=== PATIENT | female | born 1950 | race Caucasian/White ===

== ENCOUNTER 2017-09-30 18:39 | Emergency (ER) | payer MEDICARE ==
[2017-09-30] MEDS ORDERED: Lidocaine 1% w/Epinephrine 1:200K 30 ML VIAL ONE (19:14)
[2017-09-30] MEDS ORDERED: CEFAZOLIN 1 GM VIAL IM SCH (20:30)
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
[2017-09-30] MEDS ORDERED: Bacitracin Zinc 1 Packet ONE (20:39)
== END 2017-09-30 21:23 | disposition home or self-care (01) ==
LOC: ERS 18:39
DX: S62.521B Displaced fracture of distal phalanx of right thumb, initial encounter for open fracture (principal); S61.111A Laceration without foreign body of right thumb with damage to nail, initial encounter; I49.9 Cardiac arrhythmia, unspecified; I47.1 Supraventricular tachycardia; K21.9 Gastro-esophageal reflux disease without esophagitis; W23.0XXA Caught, crushed, jammed, or pinched between moving objects, initial encounter
CPT/HCPCS: 12001; 96372; J0690

== ENCOUNTER 2018-09-16 14:57 | Outpatient (CLI) | payer MEDICARE ==
--- NOTE | 2018-09-16 16:53 | RAD ---
3 VIEWS LUMBAR SPINE WITH NEUTRAL AND FLEXION AND EXTENSION VIEWS: Date: 09/16/18 HISTORY: Low back pain. COMPARISON: 04/26/17. FINDINGS: Postsurgical changes lumbosacral junction are noted. There is what appears to be a neural stimulation device overlying the mid sacrum. As noted on prior study, there are four non-rib bearing lumbar-type vertebral bodies. There is stable slight Grade I anterolisthesis of L4 on L5. There is slight correc tion and degree of anterolisthesis on extension compared to flexion, which was also noted on the prio r exam. Vertebral body heights are within normal limits. There is slight retrolisthesis of T12 on L1. Scattered osteophytes are present within the lower thoracic and involving the lumbar vertebral reji s. Facet degenerative change is seen in the lower lumbar spine. Surgical clips again overlie the uppe r abdomen. No other interval change. IMPRESSION: 1. Grade I anterolisthesis of L4 on L5 with minimal translational motion between the flexion and ext ension views. 2. Slight retrolisthesis of T12 on L1. 3. Mild degenerative changes in the lower thoracic, as well as involving the lumbar spine. POS: R[place]
== END 2018-09-16 14:58 | disposition home or self-care (01) ==
LOC: RAD 14:57
PROVIDERS: ATTEND Nurse Practitioner Family
DX: M43.16 Spondylolisthesis, lumbar region (principal); M43.17 Spondylolisthesis, lumbosacral region; M47.815 Spondylosis without myelopathy or radiculopathy, thoracolumbar region; M43.15 Spondylolisthesis, thoracolumbar region
CPT/HCPCS: 72100

== ENCOUNTER 2018-12-20 06:54 | Day surgery (SDC) | payer MEDICARE ==
[2018-12-19 14:20] VITALS: BMI 35.6
--- NOTE | 2018-12-20 11:34 | CT ---
MYELOGRAM AND POST MYELOGRAPHIC CT OF THE CERVICAL AND LUMBAR SPINE: RADIATION DOSIMETRY: Fluoroscopy 4.3 minutes. DAP 4.7 mGy per m2. FINDINGS: Initially, the L1-L2 region was prepped and draped in the right paraspinal region, by Dr. Salazar. A ttempts were made to gain access into this area. This was unsuccessful. I then reattempted to gain access. This time, a right L2-L3 paraspinal approach was used. Access was gained using a 22 gauge s ernie needle. A total of 10 mL of Isovue 300 was injected into the subarachnoid space. This was pos itioned in the lumbar spine and in the cervical spine. Post myelographic CT of the cervical and lumb ar spine was performed. CERVICAL SPINE CT: There is ACDF with anterior fusion of the C5-C6 and C6-C7 vertebral levels, using ACDF plates and screws. C1-C2: The patient has some synovial cysts at the left lateral aspect of the odontoid. No evidence of significant central stenosis is seen. C2-C3: Unremarkable. C3-C4: There is minimal facet hypertrophy seen. There is a mild broad-based disk bulge without evid ence of significant central stenosis. C4-C5: No significant degree of central or neural foraminal narrowing seen. C5-C6: ACDF fusion is seen. There is moderate bilateral C5-C6 neural foraminal narrowing due to ost eophyte encroachment. There is mild central canal stenosis due to posterior osteophyte compressing t he anterior thecal sac. C6-C7: There is mild bilateral neural foraminal narrowing. The central canal is patent. C7-T1: Unremarkable. LUMBAR SPINE CT: Vacuum disk change is seen at the T11-T12 and T12-L1 levels. T12-L1: Some vacuum disk change is seen. There is severe left lateral recess stenosis due to a larg e left T12-L1 disk extrusion. This compresses the thecal sac, resulting in severe central and parace ntral stenosis. The extruded material extends inferiorly, into the left T12-L1 epidural space. Ther e is bilateral facet and ligamentum flavum hypertrophy. This adds to the degree of spinal stenosis. L1-L2: Disk desiccation is seen. There is a broad-based disk bulge with bilateral facet and mild li gamentum flavum hypertrophy. No significant evidence of neural foraminal narrowing is seen. L2-L3: Mild broad-based disk bulge is seen. Facet and ligamentum flavum hypertrophy is seen. This results in a moderate degree of central and lateral recess stenosis. The neural foramen demonstrate mild narrowing. L3-L4: There is a mild broad-based disk bulge with bilateral facet and ligamentum flavum hypertrophy , resulting in a moderate degree of central and lateral recess stenosis. The neural foramen are pearson nt. L4-L5: There is a broad-based disk bulge with severe facet and ligamentum flavum hypertrophy, result ing in moderate to severe central and lateral recess stenosis. Mild to moderate bilateral neural for aminal narrowing is also seen. L5-S1: The patient has fusion of the L5-S1 disk with extensive right SI joint fusion, superiorly. T he L5 vertebral body is a transitional type vertebra. There is mild levoscoliosis seen centered at the L3 level. IMPRESSION: Severe facet degenerative changes and large left T12-L1 disk extrusion compressing the thecal sac. IMPRESSION: 1. D POS: OSITO
== END 2018-12-20 10:40 | disposition home or self-care (01) ==
LOC: RAD 06:54
PROVIDERS: ATTEND Neurological Surgery
PROC: B01B1ZZ Fluoroscopy of Spinal Cord using Low Osmolar Contrast (ICD-10-PCS; principal; 2018-12-20)
DX: M50.11 Cervical disc disorder with radiculopathy, high cervical region (principal); M51.16 Intervertebral disc disorders with radiculopathy, lumbar region; M41.86 Other forms of scoliosis, lumbar region; M51.25 Other intervertebral disc displacement, thoracolumbar region; M48.061 Spinal stenosis, lumbar region without neurogenic claudication; M48.02 Spinal stenosis, cervical region; M79.7 Fibromyalgia; K21.9 Gastro-esophageal reflux disease without esophagitis; E78.00 Pure hypercholesterolemia, unspecified; Z79.1 Long term (current) use of non-steroidal anti-inflammatories (NSAID); Z79.899 Other long term (current) drug therapy; Z88.2 Allergy status to sulfonamides; Z88.5 Allergy status to narcotic agent; Z88.8 Allergy status to other drugs, medicaments and biological substances; Z98.1 Arthrodesis status
CPT/HCPCS: 62305; 72126; 72132

== ENCOUNTER 2020-04-21 13:23 | Outpatient (CLI) | payer MEDICARE ==
--- NOTE | 2020-04-21 17:36 | MRI ---
MRI LUMBAR SPINE WITH AND WITHOUT CONTRAST: 04/21/20 INDICATIONS: Lumbar radiculopathy. Back pain. Correlation made to postmyelogram CT lumbar spine 12/20/18. Postop changes are seen at L5-S1. Anterior hardware produces artifact at this level. There is an anterolisthesis at L4-5 slightly more prominent than on the prior study. There is superio r end plate compression at L2 which occurred since the prior CT. There is superior end plate deformit y with secondary superior end plate compression with loss of central height and mild loss of anterior height. No significant edema on the STIR sequence which would indicate a stable compression fracture . Posterolisthesis of at T12-L1 which was noted on the prior CT. Degenerative disc changes at all level s. Findings at each level as described: T12-L1: Posterolisthesis with broad based disc bulge. Posterior hypertrophic change. Mild central can al stenosis. Mild foraminal stenosis bilaterally. L1-2: Broad based disc bulge/protrusion flattening the thecal sac. Facet and ligamentous hypertrophy. Moderate central canal stenosis. Bilateral foraminal stenosis. L2-3: Mild disc bulge. Prominent facet hypertrophy. Mild central canal stenosis. L3-4: Mild disc bulge. Prominent facet and ligamentous hypertrophy. Mild central canal stenosis. L4-5: Anterolisthesis. Broad based disc bulge. Severe posterior facet hypertrophy. These changes resu lt in severe central canal stenosis. Here is evidence of posterior surgical change with enhancement a t the laminectomy site and extending to the epidural space. No fluid or abscess collection. L5-S1: No disc bulge. No central canal or foraminal stenosis. IMPRESSION: 1. Severe central canal stenosis at L4-5 with an anterolisthesis and pronounced facet hypertroph y and broad based disc bulge. Postop changes with diffuse enhancement at the operative site and into the epidural space. 2. Disc bulge with central canal stenosis at other levels as described. POS: DAVE
== END 2020-04-21 13:24 | disposition home or self-care (01) ==
LOC: TBSIIMAG 13:23
PROVIDERS: ATTEND Neurological Surgery
DX: M51.16 Intervertebral disc disorders with radiculopathy, lumbar region (principal); M47.26 Other spondylosis with radiculopathy, lumbar region; M48.061 Spinal stenosis, lumbar region without neurogenic claudication; M43.16 Spondylolisthesis, lumbar region; Z98.890 Other specified postprocedural states
CPT/HCPCS: 72158; 82565

== ENCOUNTER 2020-05-06 06:45 | Outpatient (CLI) | payer MEDICARE, OTHER ==
[2020-05-06 12:06] LABS: Hemoglobin 14.3 g/dL (12.0-16.0); Mean Corpuscular HGB CONC 32.5 g/dL (32.0-36.0); Mean Corpuscular Hemoglobin 29.2 pg (27.0-31.0); Mean Corpuscular Volume 89.8 fL (78.0-98.0); Mean Platelet Volume 7.8 fL (7.4-10.4); Platelet Count 301 thou/uL (130-400); RBC Distribution Width 13.5 % (11.5-14.5); White Blood Cell (WBC) Count 6.2 thou/uL (4.8-10.8)
[2020-05-06 12:17] LABS: Anion Gap 11 mmol/L (10-20); BUN (Urea Nitrogen) 23 mg/dL (9.8-20.1); Calc. Creatinine Clearance 0 mL/min (70-130); Calcium 9.6 mg/dL (7.8-10.44); Carbon Dioxide 27 mmol/L (23-31); Estimated GFR-MDRD 52; Glucose 116 mg/dL (80-115)
[2020-05-06 12:24] LABS: Chloride 103 mmol/L (98-107); Potassium 4.8 mmol/L (3.5-5.1); Sodium 136 mmol/L (136-145)
[2020-05-06 14:16] LABS: INR-International Normal Ratio 0.9; PTT 27.2 sec (22.9-36.1); Prothrombin Time 12.5 sec (12.0-14.7)
[2020-05-07 12:09] LABS: SARS-CoV-2 MS2 Positive; SARS-CoV-2 N Gene Negative; SARS-CoV-2 S Gene Negative; SARS-CoV-2 orf1ab Negative
== END 2020-05-06 06:46 | disposition home or self-care (01) ==
LOC: LABBT 06:45
PROVIDERS: ATTEND Internal Medicine Cardiovascular Disease
DX: Z01.818 Encounter for other preprocedural examination (principal); Z11.59 Encounter for screening for other viral diseases; I47.1 Supraventricular tachycardia
CPT/HCPCS: 80048; 85027; 85610; 85730; 93005; U0003; 87635; 93010

== ENCOUNTER → 2020-05-10 | Day surgery (SDC) | payer MEDICARE ==
[2020-05-05 09:58] VITALS: BMI 32.0
[~2020-05-10] MED LIST: EPHEDRINE 25 MG/5 ML SYRINGE ONE; Fentanyl 100 MCG/2 ML VIAL ONE; Heparin 10,000 UNITS/1 ML VIAL ONE; Isoproterenol 0.2 MG/1 ML AMP ONE; PHENYLEPHRINE-NS 100 MCG/ML 10 ML SYRINGE ONE; PROPOFOL 200 MG/20 ML VIAL ONE; Phenylephrine 10 MG/ML VIAL ONE; Propofol 500 MG/50 ML VIAL ONE
--- NOTE | 2020-05-10 19:15 | OP ---
Delete this dictation MTDD
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
--- NOTE | 2020-05-12 18:07 | EKG ---
Test Reason : Blood Pressure : / mmHG Vent. Rate : 082 BPM Atrial Rate : 082 BPM P-R Int : 200 ms QRS Dur : 072 ms QT Int : 372 ms P-R-T Axes : 066 010 046 degrees QTc Int : 434 ms Normal sinus rhythm Normal ECG When compared with ECG of 06-MAY-2020 09:00, (Unconfirmed) QT has lengthened Confirmed by JOBY FERGUSON (2) on 05/12/2020 6:07:24 PM Referred By: ANAY Confirmed By:JOBY FERGUSON
== END ==
LOC: CCL 10:24
PROVIDERS: ATTEND Internal Medicine Cardiovascular Disease
PROC: 02583ZZ Destruction of Conduction Mechanism, Percutaneous Approach (ICD-10-PCS; principal; 2020-05-10)
PROC: 4A023FZ Measurement of Cardiac Rhythm, Percutaneous Approach (ICD-10-PCS; 2020-05-10)
PROC: 4A0234Z Measurement of Cardiac Electrical Activity, Percutaneous Approach (ICD-10-PCS; 2020-05-10)
PROC: 02K83ZZ Map Conduction Mechanism, Percutaneous Approach (ICD-10-PCS; 2020-05-10)
DX: I47.1 Supraventricular tachycardia (principal); G47.30 Sleep apnea, unspecified; E78.5 Hyperlipidemia, unspecified; K21.9 Gastro-esophageal reflux disease without esophagitis; M19.90 Unspecified osteoarthritis, unspecified site; M79.7 Fibromyalgia; F32.9 Major depressive disorder, single episode, unspecified; M06.9 Rheumatoid arthritis, unspecified; Z79.83 Long term (current) use of bisphosphonates; Z79.899 Other long term (current) drug therapy; Z88.2 Allergy status to sulfonamides; Z88.5 Allergy status to narcotic agent; Z88.8 Allergy status to other drugs, medicaments and biological substances; Z95.818 Presence of other cardiac implants and grafts
CPT/HCPCS: 76942; 93005; 93010; 93613; 93621; 93623; 93653; C1730; C1732; J1644; J2370; J2704; J3010

== ENCOUNTER 2020-05-28 08:45 | Inpatient (IN) | payer MEDICARE ==
[2020-05-28 12:13] VITALS: BMI 32.0
--- NOTE | 2020-06-04 06:08 | HP ---
HISTORY OF PRESENT ILLNESS: Ms. Bautista is a very pleasant 70-year-old woman known to us for prior lumbar decompression who returns now with a few months worth of increasing lower back pain, severe buttock pain that radiates down to the bilateral feet and what sounds to be best fit of an S1, perhaps L5 pattern. She has treated this with conservative measures including zwye-gui-bltxpry medications and home exercises with little relief. MRI from [facility] reveals recurrent severe stenosis at L4-5 secondary to grade 1 spondylolisthesis. Most certainly, this is the reason for her pain. She hopes to go ahead and treat this surgically. PAST MEDICAL HISTORY: Significant for osteoarthritis, fatty liver disease. SURGICAL HISTORY: Bladder suspension, unspecified neck surgery, parathyroidectomy, cataracts resection, cholecystectomy, right shoulder, right knee, lumbar decompression x2, hysterectomy. CURRENT MEDICATIONS: 1. Cymbalta. 2. Nexium. 3. Triamterene. 4. Verapamil. 5. Phentermine. 6. Gabapentin. 7. Sulfasalazine. ALLERGIES: TO DEMEROL, BENADRYL, SULFA DRUGS. PHYSICAL EXAMINATION: Exam is deferred for COVID-19 tele visit. PLAN: Dr. Iglesias met with the patient, reviewed imaging, advocated for reoperation, L4-5 decompression with posterior instrumentation and fusion. He explained to the patient the risks, benefits, and alternatives of the procedure. The patient expressed understanding and elected to move forward with the surgery as discussed. I do believe the patient is mentally competent and capable of making medical decisions for herself. We will move forward with surgery as planned. Job ID: [id number]
[2020-06-04] MEDS ORDERED: Bupivacaine PF 0.5% 30 ML VIAL ONE (06:19)
[2020-06-04] MEDS ORDERED: EPINEPHrine 1 MG/ML AMP ONE (06:19)
[2020-06-04] MEDS ORDERED: Thrombin 5000 UNITS/5 ML VIAL ONE (06:19)
[2020-06-04] MEDS ORDERED: Midazolam HCl 2 mg/2 ml Vial ONE (06:35)
[2020-06-04] MEDS ORDERED: Fentanyl 100 MCG/2 ML VIAL ONE ×4 (06:54→10:53)
[2020-06-04] MEDS ORDERED: Ondansetron HCl/PF 4 MG/2 ML Vial IVP PRN (08:20)
[2020-06-04] MEDS ORDERED: HYDROmorphone 2 MG/ML VIAL SLOW IVP PRN (08:20)
[2020-06-04] MEDS ORDERED: PHENYLEPHRINE-NS 100 MCG/ML 10 ML SYRINGE ONE ×2 (08:20→09:16)
[2020-06-04] MEDS ORDERED: Promethazine HCl 25 MG/ML VIAL SLOW IVP PRN (08:20)
--- NOTE | 2020-06-04 13:52 | OP ---
DATE OF PROCEDURE: 06/04/2020 [employer] GOODS: Baljinder Felder PA-C INDICATION: Pain. DIAGNOSES: 1. Lumbar spondylolisthesis with associated lumbar stenosis with claudication. 2. Lumbar radiculopathy. PROCEDURES PERFORMED: 1. Reoperation of L4-L5 with bilateral facetectomies. 2. Bilateral L4-L5 posterior lateral instrumented fusion. 3. Placement of allograft. 4. Placement of autograft. ANESTHESIA: General. DESCRIPTION OF PROCEDURE: The patient was brought into the operating room and placed under general anesthesia. She was flipped from the supine to prone position on the operating room table. A linear incision was planned at the location of a prior incision. After prepping and draping and after an appropriate preoperative pause, the incision was created. The soft tissues were swept away from midline. Self-retaining retractors were placed in the wound for optimal exposure. After confirming the appropriate level with C-arm fluoroscopy and dissecting through significant degree of scar tissue, we identified a bone defect to the L4-L5. The laminectomy was completed and most of facet joints were removed at L4-5 bilaterally. After decompressing the L4-L5 lateral recesses, pedicle screws were placed at L4-L5 bilaterally with the aid of C-arm fluoroscopy. An intraoperative 3D CT scan was performed, which confirmed appropriate placement of hardware. Rods were then placed across the screw heads and final tightened. Allograft and autograft material were then placed in the lateral confines of the instrumentation construct. The wound was irrigated. Hemostasis was maintained throughout. The wound was then closed in anatomic layers, and a pressure dressing was applied. There were no known procedural complications. Job ID: [id number]
== END 2020-06-04 13:40 | disposition home or self-care (01) | DRG 460 ==
LOC: SURG A 06-04 05:44
PROVIDERS: ADMIT Neurological Surgery; ATTEND Neurological Surgery
PROC: 0SG0071 Fusion of Lumbar Vertebral Joint with Autologous Tissue Substitute, Posterior Approach, Posterior Column, Open Approach (ICD-10-PCS; principal; 2020-06-04)
DX: M43.16 Spondylolisthesis, lumbar region (principal); M48.062 Spinal stenosis, lumbar region with neurogenic claudication; M54.16 Radiculopathy, lumbar region; M19.90 Unspecified osteoarthritis, unspecified site; Z90.89 Acquired absence of other organs; Z90.49 Acquired absence of other specified parts of digestive tract; Z90.710 Acquired absence of both cervix and uterus; Z98.890 Other specified postprocedural states; Z88.8 Allergy status to other drugs, medicaments and biological substances; Z88.2 Allergy status to sulfonamides
CPT/HCPCS: 76000; C1713; C1768; J0171; J0690; J2250; J3010; S0020

== ENCOUNTER 2020-05-31 05:47 | Outpatient (CLI) | payer MEDICARE, OTHER ==
[2020-06-01 12:20] LABS: SARS-CoV-2 MS2 Positive; SARS-CoV-2 N Gene Negative; SARS-CoV-2 S Gene Negative; SARS-CoV-2 orf1ab Negative
== END 2020-05-31 05:48 | disposition home or self-care (01) ==
LOC: LABBT 05:47
PROVIDERS: ATTEND Neurological Surgery
DX: Z01.812 Encounter for preprocedural laboratory examination (principal); Z11.59 Encounter for screening for other viral diseases; M54.16 Radiculopathy, lumbar region
CPT/HCPCS: 87635; U0003

== ENCOUNTER 2021-11-23 09:48 | Outpatient (CLI) | payer MEDICARE ==
[2021-11-23 11:16] LABS: Mean Corpuscular HGB CONC 31.8 g/dL (32.0-36.0); Mean Corpuscular Volume 94.4 fl (81.6-98.3); Mean Platelet Volume 9.7 fl (7.4-10.4); Platelet Count 278 10x3/uL (150-450); RBC Distribution Width 13.8 % (11.5-14.5); Red Blood Cell (RBC) Count 4.66 10x6/uL (3.90-5.03); White Blood Cell (WBC) Count 6.4 10x3/uL (3.5-10.5)
[2021-11-23 11:19] LABS: Anion Gap 12 mmol/L (10-20); BUN (Urea Nitrogen) 23 mg/dL (9.8-20.1); Calc. Creatinine Clearance 0 mL/min (70-130); Calcium 8.5 mg/dL (7.8-10.44); Carbon Dioxide 26 mmol/L (23-31); Chloride 106 mmol/L (98-107); Glucose 80 mg/dL (83-110); Potassium 4.2 mmol/L (3.5-5.1); Sodium 140 mmol/L (136-145)
[2021-11-23 21:32] LABS: SARS-CoV-2 PCR by NAA Not Detected (NotDetected)
== END 2021-11-23 09:49 | disposition home or self-care (01) ==
LOC: LABBT 09:48
PROVIDERS: ATTEND Neurological Surgery
DX: Z01.818 Encounter for other preprocedural examination (principal); Z20.822 Contact with and (suspected) exposure to COVID-19
CPT/HCPCS: 80048; 85027; 93005; U0003; U0005; 93010

== ENCOUNTER 2021-11-28 05:20 | Day surgery (SDC) | payer MEDICARE ==
[2021-11-22 14:00] VITALS: BMI 36.6
[2021-11-28] MEDS ORDERED: Bupivacaine PF 0.5% 30 ML VIAL ONE (06:10)
[2021-11-28] MEDS ORDERED: Thrombin 5000 UNITS/5 ML VIAL ONE (06:10)
[2021-11-28] MEDS ORDERED: EPINEPHrine 1 MG/ML AMP ONE (06:10)
[2021-11-28] MEDS ORDERED: ceFAZolin 2 GM/DEX 5% 100 ML BAG ONE ×2 (06:54→10:52)
[2021-11-28] MEDS ORDERED: Midazolam HCl 2 mg/2 ml Vial ONE (06:54)
[2021-11-28] MEDS ORDERED: Fentanyl 100 MCG/2 ML VIAL ONE ×3 (07:01→09:41)
[2021-11-28] MEDS ORDERED: Rocuronium Bromide 10 MG/ML (10ML VIAL) ONE (07:06)
[2021-11-28] MEDS ORDERED: PROPOFOL 200 MG/20 ML VIAL ONE (07:06)
[2021-11-28] MEDS ORDERED: Dexamethasone 20 MG/5 ML VIAL ONE (07:06)
[2021-11-28] MEDS ORDERED: Glycopyrrolate 0.2 MG/ML 5 ML SYRINGE ONE (07:06)
[2021-11-28] MEDS ORDERED: PHENYLEPHRINE-NS 100 MCG/ML 10 ML SYRINGE ONE (07:06)
[2021-11-28] MEDS ORDERED: Ondansetron PF 4 MG/2 ML Vial ONE (07:06)
[2021-11-28] MEDS ORDERED: Lidocaine 1% PF 5 ML VIAL ONE (07:06)
[2021-11-28] MEDS ORDERED: ePHEDrine 50 MG/ML VIAL ONE (07:06)
[2021-11-28] MEDS ORDERED: SUGAMMADEX SODIUM 200 MG/2 ML VIAL ONE (08:43)
== END 2021-11-28 12:35 | disposition home or self-care (01) ==
LOC: SDC 05:20
PROVIDERS: ATTEND Neurological Surgery
PROC: 01NB0ZZ Release Lumbar Nerve, Open Approach (ICD-10-PCS; principal; 2021-11-28)
DX: M48.062 Spinal stenosis, lumbar region with neurogenic claudication (principal); M54.16 Radiculopathy, lumbar region; G89.4 Chronic pain syndrome; I10 Essential (primary) hypertension; K21.9 Gastro-esophageal reflux disease without esophagitis; G47.33 Obstructive sleep apnea (adult) (pediatric); E78.5 Hyperlipidemia, unspecified; M19.90 Unspecified osteoarthritis, unspecified site; M79.7 Fibromyalgia; E89.2 Postprocedural hypoparathyroidism; Z79.83 Long term (current) use of bisphosphonates; Z79.899 Other long term (current) drug therapy; Z88.2 Allergy status to sulfonamides; Z88.5 Allergy status to narcotic agent; Z88.8 Allergy status to other drugs, medicaments and biological substances; Z98.1 Arthrodesis status
CPT/HCPCS: 76000; J0171; J1100; J2250; J2405; J2704; J3010; J3490; J7620; S0020